=== PATIENT | male | born 1970 | race Caucasian/White ===

== ENCOUNTER 2017-12-26 11:00 | Emergency (ER) | payer OTHER ==
[~2017-12-26] VITALS: Ht 175.3 cm; Wt 102.7 kg
[~2017-12-26 11:00] MED LIST: TRAM50TA3 PO
[2017-12-26 11:05] VITALS: BP 151/91
--- NOTE | 2017-12-26 11:20 | NUR ---
PATIENT PRESENTS TO ED WITH C/O PRODUCTIVE COUGH X 2 WKS, NAUSEA STARTED YESTERDAY, CONSTANT, NON RADIATING STERNAL CP STARTED THIS MORNING, TOOK MUCINEX WITH NO RELIEF. PATIENT STATES PAIN OF 6/10 AT THIS TIME; VSS; PATIENT POSITIONED FOR COMFORT; HOB ELEVATED; BEDRAILS UP X2; BED DOWN. ER MD MADE AWARE OF PT STATUS.
--- NOTE | 2017-12-26 11:43 | NUR ---
Patient being evaluated by physician at bedside.
[2017-12-26 11:55] VITALS: BP 148/83
--- NOTE | 2017-12-26 11:55 | NUR ---
Patient discharged with v/s stable. Written and verbal after care instructions given and explained. Patient alert, oriented and verbalized understanding of instructions. Ambulatory with steady gait. All questions addressed prior to discharge. ID band removed. Patient advised to follow up with PMD. Rx of ZOFRAN AND PREDNISONE given. Patient educated on indication of medication including possible reaction and side effects. Opportunity to ask questions provided and answered.
== END 2017-12-26 11:55 | disposition home or self-care (01) ==
LOC: MED 11:00
DX: R05 Cough (principal); R11.2 Nausea with vomiting, unspecified; R07.89 Other chest pain; Z79.899 Other long term (current) drug therapy; Z88.5 Allergy status to narcotic agent; Z88.8 Allergy status to other drugs, medicaments and biological substances
CPT/HCPCS: 99283

== ENCOUNTER 2018-08-01 18:42 | Emergency (ER) | payer OTHER ==
[~2018-08-01] VITALS: Ht 175.3 cm; Wt 90.7 kg
[2018-08-01 18:47] VITALS: BP 140/82
--- NOTE | 2018-08-01 18:51 | NUR ---
PT WHEELCHAIR ASSISTED TO LOBBY. VSS.
--- NOTE | 2018-08-01 20:29 | NUR ---
PT C/O LEFT ANKLE PAIN S/P TWISTING IT LAST NIGHT LEAVING A FRIENDS HOUSE. PT REPORTS PAIN, SWELLING, AND IRRITATION WORSENING. LEFT FOOT APPEARS SWOLLEN AND + DEFORMITY. PAIN 8/10, SHARP, INTERMITTENT HX: DENIES RX: DENIES
--- NOTE | 2018-08-01 20:46 | NUR ---
Dr. Michel evaluating patient
[2018-08-01 21:41] VITALS: BP 140/82
--- NOTE | 2018-08-01 21:41 | NUR ---
Patient discharged with v/s stable. Instruced on crutch use. Written and verbal after care instructions given and explained.Patient alert, oriented and verbalized understanding of instructions. Ambulatory with steady gait. All questions addressed prior to discharge. ID band removed. Patient advised to follow up with PMD. Rx of Ibprofen given. Patient educated on indication of medication including possible reaction and side effects. Opportunity to ask questions provided and answered.
== END 2018-08-01 21:41 | disposition home or self-care (01) ==
LOC: MED 18:42
DX: S93.402A Sprain of unspecified ligament of left ankle, initial encounter (principal); Z88.6 Allergy status to analgesic agent; Z79.899 Other long term (current) drug therapy; X50.1XXA Overexertion from prolonged static or awkward postures, initial encounter; Y93.89 Activity, other specified; Y92.89 Other specified places as the place of occurrence of the external cause; Y99.8 Other external cause status
CPT/HCPCS: 73610; 99284

== ENCOUNTER 2020-03-12 21:58 | Emergency (ER) | payer OTHER ==
[~2020-03-12] VITALS: Ht 170.2 cm; Wt 86.2 kg
--- NOTE | 2020-03-12 22:08 | NUR ---
PT TAKEN TO BED 4 WITH STEADY GAIT.
[2020-03-12 22:15] VITALS: BP 129/73
--- NOTE | 2020-03-12 22:20 | NUR ---
PT 49 Y/O MALE BIB SELF FOR C/O 05/12 S/P MULTIPLE "BUG BITES." X 1 DAY. PT NOTED WITH RAISED SWELLING IN L FOOT, ABD RLQ, AND L HIP AREA. SKIN IS HOT TO TOUCH. NO DRAINAGE NOTED. PT STATES HE PLACED ICE TO REDUCE WSWEELING AND CORTISONE CREAM BUT SWELLING CONTINUED. PT DENIES N/V/D. PT DENIES COUGH. AFEBRILE. VSS. MED HX: STAPH INFECTION IN ABDOMEN IN 2007 ALLERGIES: CODINE, IBUPROFEN.
--- NOTE | 2020-03-12 23:36 | NUR ---
PT RESTING IN BED LOOKING AT PHONE. VSS. RESPIRATIONS ARE EVEN AND UNLABORED. RESPONSIVE TO VERBAL SIMULI. ALL NEEDS MET AT THIS TIME.
[2020-03-13 00:14] VITALS: BP 132/88
--- NOTE | 2020-03-13 00:24 | NUR ---
Patient discharged with v/s stable. Written and verbal after care instructions given and explained. Patient alert, oriented and verbalized understanding of instructions. Ambulatory with steady gait. All questions addressed prior to discharge. ID band removed. Patient advised to follow up with PMD. Rx of KEFLEX, PREDNISONE given. Patient educated on indication of medication including possible reaction and side effects. Opportunity to ask questions provided and answered.
== END 2020-03-13 00:24 | disposition home or self-care (01) ==
LOC: MED 21:58
DX: L03.311 Cellulitis of abdominal wall (principal); Z88.8 Allergy status to other drugs, medicaments and biological substances; Z88.6 Allergy status to analgesic agent
CPT/HCPCS: 99283

== ENCOUNTER 2020-04-08 14:26 | Emergency (ER) | payer OTHER ==
[~2020-04-08] VITALS: Ht 175.3 cm; Wt 98.0 kg
[2020-04-08 14:27] VITALS: BP 138/119
--- NOTE | 2020-04-08 14:38 | NUR ---
PT AMBULATED TO ER BED 05
--- NOTE | 2020-04-08 14:43 | NUR ---
damaris romero at bedside evaluating pt.
--- NOTE | 2020-04-08 14:50 | NUR ---
C/O UPPER BACK PAIN & RIGHT ANKLE PAINS/P TRIP & FALL X 3 DAYS.PT AOX4 . AFIBRILE , AMBULATORY NO LIMITATION ROM. MED HX:DENIES
[2020-04-08 14:55] VITALS: BP 138/94
--- NOTE | 2020-04-08 14:56 | NUR ---
Patient discharged with v/s stable. Written and verbal after care instructions given and explained. Patient verbalized understanding. Ambulatory with steady gait. All questions addressed prior to discharge. Advised to follow up with PMD.
== END 2020-04-08 14:56 | disposition home or self-care (01) ==
LOC: MED 14:26
DX: S93.401A Sprain of unspecified ligament of right ankle, initial encounter (principal); S20.229A Contusion of unspecified back wall of thorax, initial encounter; Z88.5 Allergy status to narcotic agent; Z88.8 Allergy status to other drugs, medicaments and biological substances; Z79.899 Other long term (current) drug therapy; W18.09XA Striking against other object with subsequent fall, initial encounter; Y93.89 Activity, other specified; Y92.89 Other specified places as the place of occurrence of the external cause; Y99.8 Other external cause status
CPT/HCPCS: 99281; 99282

== ENCOUNTER 2022-03-27 15:08 | Emergency (ER) | payer OTHER ==
[~2022-03-27] VITALS: Ht 175.3 cm; Wt 98.4 kg
[2022-03-27 15:19] VITALS: BP 146/72
--- NOTE | 2022-03-27 15:27 | NUR ---
PT AMBULATED TO BED 6.
--- NOTE | 2022-03-27 15:49 | NUR ---
LAB AT BEDSIDE.
--- NOTE | 2022-03-27 15:52 | NUR ---
Radha wrightsara in [facility] - 03/27/22 at 1628 by KE The patient's care was reviewed and supervised by Cristian Garcia RN.
[2022-03-27 16:21] LABS: BASOPHILS % (AUTO) 0.7 % (0.0-2.0); EOSINOPHILS # (AUTO) 0.2 K/uL (0-0.4); HEMATOCRIT 46.2 % (36-52); HEMOGLOBIN 15.6 g/dL (12.0-18.0); LYMPHOCYTES # (AUTO) 1.6 K/uL (2.0-11.5); LYMPHOCYTES % (AUTO) 27.6 % (20.5-51.1); MEAN CORPUSCULAR HEMOGLOBIN 32 pg (27-31); MEAN CORPUSCULAR HGB CONC 34 g/dL (33-37); MEAN CORPUSCULAR VOLUME 95.3 fL (80-94); MONOCYTES # (AUTO) 0.5 K/uL (0.8-1.0); MONOCYTES % (AUTO) 8.5 % (1.7-9.3); NEUTROPHILS # (AUTO) 3.4 K/uL (1.8-7.7); NEUTROPHILS % (AUTO) 59.2 % (42.2-75.2); PLATELET COUNT (AUTO) 281 K/uL (140-450); RED BLOOD CELL COUNT(AUTO) 4.85 MIL/uL (4.20-6.10); RED CELL DISTRIBUTION WIDTH 13.1 % (11.6-13.7); WHITE BLOOD COUNT (AUTO) 5.8 K/uL (4.8-10.8)
--- NOTE | 2022-03-27 16:27 | NUR ---
41 Y/O MALE BIB C/O SUICIDAL IDEATION X TODAY. PER PATIENT HE HAS HAD ONE PREVIOUS EPISODE "A MONTH AGO WHERE HE TRIED TO TAKE A BUNCH OF PILLS BUT THAT IT DIDN'T WORK AND HE JUST GOT SICK." PATIENT WANTS TO HURT HIMSELF. MEDICAL HISTORY: DEPRESSION ALLERGY: CODEINE, IBUPROFEN
[2022-03-27 16:53] LABS: ALBUMIN 3.7 g/dL (3.4-5.0); ANION GAP 11.7 (8-16); ASPARTATE AMINOTRANSFERASE 55 U/L (15-37); CARBON DIOXIDE 27.2 mmol/L (21-32); CHLORIDE 104 mmol/L (98-107); CREATININE 0.7 mg/dL (0.6-1.3); GFR ARICAN-AMERICAN 154 mL/min (>90); GLUCOSE 109 mg/dL (74-106); POTASSIUM 3.9 mmol/L (3.5-5.1); SODIUM SERUM 139 mmol/L (136-145); TOTAL BILIRUBIN 0.3 mg/dL (0.0-1.0); UREA NITROGEN, BLOOD 13 mg/dL (7-18)
[2022-03-27 16:57] LABS: ACETAMINOPHEN < 0.5 ug/ml (10-30); SALICYLATE < 2.8 mg/dL (2.8-20.0)
--- NOTE | 2022-03-27 18:05 | NUR ---
PATIENT WAS OFFERED HIS DINNER TRAY, PATIENT EATING AT BEDSIDE.
--- NOTE | 2022-03-27 19:15 | NUR ---
REPORT RECIEVED FROM [facility] TREATMENT TECHNICIAN
--- NOTE | 2022-03-27 20:42 | NUR ---
PT WANTING TO KNOW IF HE CAN SIGN HIMSELF OUT AMA. DR FENG AWARE. PT AWARE OF TELEPSYCH PENDING. SPOKE TO PATIENT REGARDING THE IMPORTANCE OF THIS RESOURCES AND HELP
--- NOTE | 2022-03-27 21:08 | NUR ---
PT AT BEDSIDE. DR FENG SPOKE TO WITH PATIENT ON D/C . SPOKE TO PT PMD REGARDING A FACILTITY FOR ETOH ABUSE AND DETOX.
[2022-03-27] MEDS ORDERED: LORazepam 1 MG TAB PO ONE ×2 (21:30→21:55)
--- NOTE | 2022-03-27 21:34 | NUR ---
Dr. Farrell at bedside with patient family
--- NOTE | 2022-03-28 00:57 | NUR ---
PENDING TELEPSYCH . NO ETA DUE TO HIGH VOLUME
--- NOTE | 2022-03-28 01:45 | NUR ---
PT RESTING RESP EVEN AND UNLABORED. AT BEDSIDE
--- NOTE | 2022-03-28 04:01 | NUR ---
NO CHANGE IN PATIENTS CONDITION. PT IS SLEEPING RESP EVEN AND UNLABORED. SLEEPING NEXT TO PATIENT.
--- NOTE | 2022-03-28 04:28 | NUR ---
UPDATED ETA FOR TELEMED 1-2 HOURS
--- NOTE | 2022-03-28 05:41 | NUR ---
NOTIFED PATIENT AND ON ETA ON TELEMED. PATIENT DENIES ANY PAIN OR ANXIETY.
--- NOTE | 2022-03-28 07:08 | NUR ---
UPDATED PATIENT AND ON STATUS FOR TELEMED. HATTIE RN SPOKE TO HOUSE SUP ON STATUS OF DELAYED ETA
--- NOTE | 2022-03-28 07:23 | NUR ---
report given to GABINO BLANTON. transfered care at this time
--- NOTE | 2022-03-28 07:23 | NUR ---
REPORT RECEIVED FROM POORNIMA BLANTON. ASSUMED CARE AT THIS TIME
--- NOTE | 2022-03-28 07:55 | NUR ---
PT REPORTS NEW ONSET OF ANXIETY, MADE AWARE
[2022-03-28] MEDS ORDERED: LORazepam 1 MG TAB PO ONE (08:00)
--- NOTE | 2022-03-28 08:05 | NUR ---
PT PROVIDED WITH BREAKFAST. PT AWAKE AND EATING IN BED
--- NOTE | 2022-03-28 09:00 | NUR ---
PT REPORTS FEELING "BETTER" . DENIES ANXIETY AT THIS TIME. PT RESTING LAYING ON SIDE. RESPIRATIONS EVEN AND UNLABORED
--- NOTE | 2022-03-28 11:50 | NUR ---
PATIENT IS SPEAKING WITH PSYCHIATRIST VIA TELEPSYCH.
[2022-03-28] MEDS ORDERED: BUPR-160 PO (12:23)
--- NOTE | 2022-03-28 12:30 | NUR ---
Patient discharged with v/s stable. Written and verbal after care instructions given and explained. Patient alert, oriented and verbalized understanding of instructions. Ambulatory with steady gait. All questions addressed prior to discharge. ID band removed. Patient advised to follow up with PMD. Rx of WELLBUTRIN XL given. Patient educated on indication of medication including possible reaction and side effects. Opportunity to ask questions provided and answered.
[2022-03-28 12:39] VITALS: BP 132/75
== END 2022-03-28 12:30 | disposition home or self-care (01) ==
LOC: MED 15:08
DX: F10.129 Alcohol abuse with intoxication, unspecified (principal); Z20.822 Contact with and (suspected) exposure to COVID-19; R45.851 Suicidal ideations; Z79.891 Long term (current) use of opiate analgesic; Z88.5 Allergy status to narcotic agent; Z88.6 Allergy status to analgesic agent; F32.9 Major depressive disorder, single episode, unspecified
CPT/HCPCS: 36415; 80053; 81002; 85025; 87426; 87635; 93005; 99284; C9803; G0480; G0482